=== PATIENT | female | born 1985 | race Caucasian/White ===

== ENCOUNTER 2016-05-25 14:36 | Emergency (ER) | payer OTHER ==
[~2016-05-25] VITALS: Ht 154.9 cm; Wt 53.7 kg
[~2016-05-25 14:36] MED LIST: MIGRANE MED; MOTRIN600 MG PO; NAPROSYN500 MG PO; PEPCID20 MG PO; PREDNISONE20 MG PO
[2016-05-25 16:40] LABS: MCH 30.6 PG (29.0-34.0); MCV 87.4 FL (83-99); MEAN PLAT.VOLUME 8.7 uM^3 (9.5-12.4); PLATELET COUNT 377 K/uL (156-360); RBC DIS.WIDTH-CV 13.4 % (11.8-14.6); RBC DIS.WIDTH-SD 40.5 % (39-53); RED BLOOD COUNT 3.66 M/uL (3.80-5.20); WHITE BLOOD COUNT 7.1 K/uL (4.1-10.2)
[2016-05-25 16:42] LABS: CHLORIDE 104 mEq/L (99-109); POTASSIUM 4.1 mEq/L (3.7-5.4); SODIUM 139 mEq/L (136-147)
[2016-05-25 16:43] LABS: GLUCOSE 85 mg/dL (70-99)
[2016-05-25 16:45] LABS: ANION GAP 11 MEQ/L (2-14)
[2016-05-25 16:47] LABS: GFR ESTIMATE (CALCULATED) > 59 mL/min/
[2016-05-25 16:48] LABS: UREA NITROGEN (BUN) 12 mg/dL (9-23)
[2016-05-25 16:57] LABS: EOSINOPHIL COUNT 0.9 K/uL (0-0.3); IMMATURE GRANULOCYTE (%) 0.1 % (0.0-0.7); IMMATURE GRANULOCYTE COUNT 0.1 K/uL; LYMPHOCYTE COUNT 1.5 K/uL (1.0-2.8); MONOCYTE (%) 5.4 % (3-12); MONOCYTE COUNT 0.4 K/uL (0-0.8); NEUTROPHIL (%) 59.9 % (45-76); NEUTROPHIL COUNT 4.3 K/uL (1.8-6.4)
[2016-05-25 21:08] LABS: ADD MIUA? YES; BILIRUBIN NEGATIVE; BLOOD SMALL; COLOR YELLOW ((YELLOW)); GLUCOSE (STRIP) NEGATIVE; KETONES 5; LEUKOCYTES NEGATIVE; NITRITE NEGATIVE; PROTEIN (STRIP) NEGATIVE
[2016-05-25 21:10] LABS: BACTERIA NONE SEEN /HPF; EPITHELIAL CELLS RARE /HPF; MUCUS TRACE /LPF; RED BLOOD CELLS 0-5 /HPF (0-5); UCUL ADDED? NO; WHITE BLOOD CELLS 0-5 /HPF (0-5)
[2016-05-25 21:11] LABS: CASTS NONE SEEN /LPF; CRYSTALS NONE SEEN
[2016-05-25 21:18] LABS: SPECIFIC GRAVITY > 1.080 (1.000-1.030)
[2016-05-25 23:53] VITALS: BP 126/92
== END 2016-05-26 00:08 | disposition short-term general hospital (02) ==
LOC: EME 14:36
PROVIDERS: Emergency Medicine; Nurse Practitioner Family
DX: N99.842 Postprocedural seroma of a genitourinary system organ or structure following a genitourinary system procedure (principal); T81.4XXA Infection following a procedure, initial encounter; Y83.8 Other surgical procedures as the cause of abnormal reaction of the patient, or of later complication, without mention of misadventure at the time of the procedure; Z90.710 Acquired absence of both cervix and uterus
CPT/HCPCS: 74177; 80048; 81003; 85025; 99281; 99285; J2270; J2405; J2543; J3010; J7030